=== PATIENT | female | born 1960 | race Caucasian/White ===

== ENCOUNTER 2018-03-18 20:16 | Emergency (ER) | payer MEDICAID, OTHER ==
[~2018-03-18] VITALS: Ht 167.6 cm; Wt 77.1 kg
[2018-03-18 20:51] VITALS: BP 142/69
[2018-03-19] MEDS ORDERED: methylPREDNISolone SOD SUCC 125 MG/2 ML VL IM ONE (00:45)
[2018-03-19] MEDS ORDERED: KETOROLAC TROMETH 60MG/2ML VIAL IM ONE (00:45)
== END 2018-03-19 01:19 | disposition home or self-care (01) ==
LOC: ER 20:16
DX: M47.896 Other spondylosis, lumbar region (principal); M51.06 Intervertebral disc disorders with myelopathy, lumbar region
CPT/HCPCS: 72131; 96372; 99284; J1885; J2930

== ENCOUNTER 2019-02-11 04:17 | Emergency (ER) | payer MEDICAID ==
[~2019-02-11] VITALS: Ht 170.2 cm; Wt 81.6 kg
[2019-02-11] MEDS ORDERED: KETOROLAC TROMETH 60MG/2ML VIAL IM ONE (07:30)
[2019-02-11 07:32] VITALS: BP 120/55
== END 2019-02-11 07:52 | disposition home or self-care (01) ==
LOC: ER 04:17
DX: T21.04XA Burn of unspecified degree of lower back, initial encounter (principal); F17.210 Nicotine dependence, cigarettes, uncomplicated; X16.XXXA Contact with hot heating appliances, radiators and pipes, initial encounter; Y93.89 Activity, other specified; Y92.89 Other specified places as the place of occurrence of the external cause; Y99.8 Other external cause status
CPT/HCPCS: 96372; 99283; J1885